=== PATIENT | female | born 1970 | race Two or more races ===

== ENCOUNTER 2025-04-18 13:38 | Emergency (ER) | payer OTHER ==
[~2025-04-18] VITALS: Ht 162.6 cm; Wt 77.1 kg
[~2025-04-18 13:38] MED LIST: ALTACE1.25 M1
[2025-04-18] MEDS ORDERED: METFORMIN HCL1000 M2 PO (14:23)
[2025-04-18] MEDS ORDERED: ADULT LOW DOSE81 M1 PO (14:23)
[2025-04-18] MEDS ORDERED: IRBESARTAN-HCT1 EAC1 PO (14:24)
[2025-04-18] MEDS ORDERED: LANTUS SOL100 UNIT/1 SQ (14:25)
[2025-04-18] MEDS ORDERED: KETOROLAC TROMETHAMINE 30 MG VIAL IV ONE ×2 (16:00→19:30)
[2025-04-18] MEDS ORDERED: FAMOtidine 10 MG/ML (4ML VIAL) IV ONE (16:00)
[2025-04-18] MEDS ORDERED: TAMSULOSIN HCL 0.4 MG CAP PO ONE ×2 (16:00→16:28)
[2025-04-18] MEDS ORDERED: CEFTRIAXONE SODIUM 1,000 MG VIAL IV ONE (16:00)
[2025-04-18] MEDS ORDERED: KETOROLAC TROMETHAMINE 30 MG VIAL ONE (16:28)
[2025-04-18] MEDS ORDERED: FAMOTIDINE/PF 20 MG/2 ML VIAL ONE (16:28)
[2025-04-18] MEDS ORDERED: CEFTRIAXONE SODIUM 1,000 MG VIAL ONE (16:28)
[2025-04-18 17:14] LABS: BASO % 0.7 % (0.1-1.2); EOS # 0.27 (0.04-0.54); EOS % 3.9 % (0.7-7.0); LYMPH # 2.14 (1.18-3.74); LYMPH % 30.8 % (19.3-53.1); MEAN PLATELET VOLUME 11.20 fl (9.4-12.4); MONO # 0.44 (0.24-0.82); MONO % 6.3 % (4.7-12.5); NEUT # 4.03 (1.56-6.13); NEUT % 58.2 % (34.0-71.1); RED CELL DISTRIBUTION WIDTH 13.0 % (11.6-14.4)
[2025-04-18 17:43] LABS: INR 1.05
[2025-04-18 17:47] LABS: ALT/SGPT 36.0 U/L (12-78); AST/SGOT 22.0 U/L (15-37); BILIRUBIN TOTAL 0.71 mg/dL (0.3-1.2); BUN CREA RATIO 13.0 (7.0-25.0); CREATININE SERUM 0.87 mg/dL (0.55-1.02); GFR 67.11; GLOBULINA 3.7 G/DL (2.4-3.5); OSMOLALITY SERUM 290.0 MOSM/KG (275-295)
[2025-04-18 17:48] LABS: GLUCOSE FASTING 360.0 mg/dL (65-100)
[2025-04-18 18:10] LABS: URINE APPEARANCE Clear; URINE BILIRRUBIN Negative (NEGATIVE); URINE BLOOD Negative; URINE COLOR Yellow; URINE KETONE Negative (NEGATIVE); URINE LEUKOCYTE Negative; URINE NITRATE Negative; URINE PROTEIN 30 (NEGATIVE); URINE UROBILINOGEN 0.2 E.U./dl
[2025-04-18 18:11] LABS: URINE BACTERIA 58.7 uL (0.0-1933); URINE EPITHELIAL CELLS 7.5 uL (0.0-38.8); URINE WBC 38.1 uL (0.0-23.2)
[2025-04-18 18:15] LABS: URINE CAST 0.00 uL (0.0-1.40); URINE GLUCOSE >=1000 MG/DL (NEGATIVE); URINE RBC 1.3 uL (0.0-20.8)
[2025-04-18] MEDS ORDERED: TAMS0.4C PO (19:25)
[2025-04-18] MEDS ORDERED: NORFLEX100MG PO (19:25)
[2025-04-18] MEDS ORDERED: BACTRIM DS TAB1 EACH PO (19:25)
[2025-04-18] MEDS ORDERED: PEPCID AC20 MG PO (19:25)
[2025-04-18] MEDS ORDERED: INSULIN REGULAR, HUMAN 1,000 UNIT/10 ML UNITS SUBCUTANEO ONE (19:30)
== END 2025-04-18 20:42 | disposition home or self-care (01) ==
LOC: ER 13:38
PROVIDERS: General Practice
DX: R10.9 Unspecified abdominal pain (principal); N39.0 Urinary tract infection, site not specified; Z88.0 Allergy status to penicillin; E11.65 Type 2 diabetes mellitus with hyperglycemia; Z79.4 Long term (current) use of insulin; I10 Essential (primary) hypertension